=== PATIENT | female | born 1980 | race African-American/Black ===

== ENCOUNTER 2016-11-24 23:08 | Emergency (ER) | payer OTHER ==
[~2016-11-24] VITALS: Ht 167.6 cm; Wt 68.0 kg
[2016-11-24] MEDS ORDERED: Solu-MEDROL 125mg Inj IVP ONE (23:30)
[2016-11-24] MEDS: Albuterol ud Inhalation HHN SCH ×2 (23:43→23:51)
[2016-11-24] MEDS: Ipratropium 0.02% Inh Soln 2.5ml UD HHN SCH ×2 (23:43→23:51)
[2016-11-25] MEDS: Albuterol ud Inhalation HHN SCH
[2016-11-25] MEDS: Ipratropium 0.02% Inh Soln 2.5ml UD HHN SCH
[2016-11-25 01:00] VITALS: BP 103/55
[2016-11-25 01:02] LABS: APPEARANCE,URINE CLEAR; KETONES,URINE NEGATIVE (NEGATIVE); LEUKOCYTE ESTERASE ,URINE NEGATIVE (NEGATIVE); NITRITE,URINE NEGATIVE (NEGATIVE); PH,URINE 6 (4.5-8.0); PROTEIN,URINE 4+ (NEGATIVE); UROBILINOGEN,URINE 4 MG/DL (0.0-1.0)
[2016-11-25 01:08] LABS: BACTERIA,URINE FEW /HPF; HYALINE CASTS, URINE 0-2 /LPF; RBC,URINE 0-2 /HPF (0 - 2); SQUAMOUS EPITHELIAL CELL,UR FEW /LPF (NONE/OCC)
[2016-11-25 02:02] LABS: MEAN CORPUSCULAR HEMOGLOBIN 28.3 PG (27.0-31.0); MEAN CORPUSCULAR HGB CONC 29.9 G/DL (32.0-36.0); MEAN CORPUSCULAR VOLUME 95 FL (80-99); MEAN PLATELET VOLUME 5.5 FL (6.5-10.1); PLATELET COUNT 451 K/UL (150-450); RED BLOOD COUNT 2.67 M/UL (4.20-5.40); RED CELL DISTRIBUTION WIDTH 18.1 % (11.6-14.8); WHITE BLOOD COUNT 7.2 K/UL (4.8-10.8)
[2016-11-25 02:17] LABS: ALBUMIN/GLOBULIN RATIO 0.3 (1.0-2.7); CALCIUM 7.7 mg/dL (8.6-10.2); CREATININE 1.6 mg/dL (0.5-0.9); GLOMERULAR FILTRATION RATE 44.2 mL/min (>60); POTASSIUM 4.4 mEQ/L (3.4-4.9); TOTAL PROTEIN 7.1 g/dL (6.6-8.7)
[2016-11-25 02:21] LABS: TROPONIN I < 0.30 ng/mL (<=0.30)
[2016-11-25 02:30] LABS: CKMB 7.3 ng/mL (< 3.8)
[2016-11-25 03:00] VITALS: BP 102/88
[2016-11-25 05:13] VITALS: BP 102/88
[2016-11-25 05:23] VITALS: BP 102/88
--- NOTE | 2016-11-25 05:37 | Emergency Room Report ---
History of Present Illness General Chief Complaint: Dyspnea/Respdistress Source: Patient, EMS Present Illness HPI 36-year-old female presents to ED complaining of shortness of breath. Patient notes history of asthma and "enlarged heart". Patient states he has been coughing and wheezing for one day now. Per EMS O2 sat was in the 80s initially. She was started on nebulizer treatments with O2 saturation improved. Patient states she still feels short of breath and is wheezing. Notes cough. Productive. Denies fevers or chills. Denies chest pain. No other aggravating relieving factors. Eyes any other associated symptoms Allergies: Coded Allergies: No Known Allergies (Unverified , 11/24/16) Patient History Past Medical History: asthma Past Surgical History: none Pertinent Family History: none Social History: Denies: alcohol use, drug use, smoking Last Menstrual Period: NONE Now: No Immunizations: UTD Reviewed Nursing Documentation: PMH: Agreed, PSxH: Agreed Nursing Documentation-PMH Hx Asthma: Yes Review of Systems All Other Systems: negative except mentioned in HPI Physical Exam Vital Signs Date Time Temp Pulse Resp B/P Pulse Ox O2 Delivery O2 Flow Rate FiO2 11/24/16 23:08 98.8 139 22 104/58 100 Room Air 11/24/16 23:39 21 Sp02 EP Interpretation: reviewed, normal General Appearance: alert, GCS 15, non-toxic, moderate distress Head: normocephalic Eyes: bilateral eye PERRL, bilateral eye normal inspection ENT: normal ENT inspection Neck: normal inspection Respiratory: wheezing Cardiovascular #1: no edema, tachycardia Gastrointestinal: normal inspection Rectal: deferred Genitourinary: no CVA tenderness Musculoskeletal: normal inspection Neurologic: alert, oriented x3, responsive, motor strength/tone normal, sensory intact, speech normal Psychiatric: normal inspection Skin: normal inspection Lymphatic: normal inspection Medical Decision Making Diagnostic Impression: Primary Impression: Asthma exacerbation Additional Impressions: CHF (congestive heart failure) Qualified Codes: I50.9 - Heart failure, unspecified Anemia Qualified Codes: D64.9 - Anemia, unspecified ARF (acute renal failure) Qualified Codes: N17.9 - Acute kidney failure, unspecified ER Course Hospital Course 36-year-old female presents ED complaining of short of breath, wheezing, cough Differential diagnoses include: Pneumonia, asthma, COPD, CHF Clinical course Patient placed on stretcher. 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 After initial history and physical I ordered labs, EKG, chest x-ray, nebulizer treatment labs reviewed- no leukocytosis, hemoglobin/hematocrit 7.5/25.2, creatinine elevated, troponins negative, BNP greater than 5000, Chest x-ray- cardiomegaly Patient required multiple rounds some breathing treatments remains wheezing. Antibiotics given. Because of insurance patient will be transferred I. I feel this is a highly complex case requiring extensive working including EKG/Rhythm strip, Xray/CT/US, Blood/urine lab work, repeat exams while in ED, and administration of strong opiates/narcotics for pain control, admission to hospital or close patient follow up. Diagnosis - asthma exacerbation, CHF, anemia, ARF transferred in serious condition Labs Test 11/25/16 00:09 11/25/16 01:45 Urine Color Yellow Urine Appearance Clear Urine pH 6 (4.5-8.0) Urine Specific Mcgraw 1.015 (1.005-1.035) Urine Protein 4+ (NEGATIVE) Urine Glucose (UA) Negative (NEGATIVE) Urine Ketones Negative (NEGATIVE) Urine Occult Blood 2+ (NEGATIVE) Urine Nitrite Negative (NEGATIVE) Urine Bilirubin Negative (NEGATIVE) Urine Urobilinogen 4 MG/DL (0.0-1.0) Urine Leukocyte Esterase Negative (NEGATIVE) Urine RBC 0-2 /HPF (0 - 2) Urine WBC 5-10 /HPF (0 - 2) Urine Squamous Epithelial Cells Few /LPF (NONE/OCC) Urine Bacteria Few /HPF (NONE) Urine Hyaline Casts 0-2 /LPF (NONE) White Blood Count 7.2 K/UL (4.8-10.8) Red Blood Count 2.67 M/UL (4.20-5.40) Hemoglobin 7.5 G/DL (12.0-16.0) Hematocrit 25.2 % (37.0-47.0) Mean Corpuscular Volume 95 FL (80-99) Mean Corpuscular Hemoglobin 28.3 PG (27.0-31.0) Mean Corpuscular Hemoglobin Concent 29.9 G/DL (32.0-36.0) Red Cell Distribution Width 18.1 % (11.6-14.8) Platelet Count 451 K/UL (150-450) Mean Platelet Volume 5.5 FL (6.5-10.1) Neutrophils (%) (Auto) % (45.0-75.0) Lymphocytes (%) (Auto) % (20.0-45.0) Monocytes (%) (Auto) % (1.0-10.0) Eosinophils (%) (Auto) % (0.0-3.0) Basophils (%) (Auto) % (0.0-2.0) Sodium Level 138 mEQ/L (135-145) Potassium Level 4.4 mEQ/L (3.4-4.9) Chloride Level 100 mEQ/L (98-107) Carbon Dioxide Level 23 mEQ/L (20-30) Anion Gap 15 (5-15) Blood Urea Nitrogen 34 mg/dL (7-23) Creatinine 1.6 mg/dL (0.5-0.9) Estimat Glomerular Filtration Rate 44.2 mL/min (>60) Glucose Level 96 mg/dL (74-106) Calcium Level 7.7 mg/dL (8.6-10.2) Total Bilirubin 0.3 mg/dL (0.0-1.2) Aspartate Amino Transf (AST/SGOT) 106 U/L (5-40) Alanine Aminotransferase (ALT/SGPT) 74 U/L (3-33) Alkaline Phosphatase 199 U/L (35-104) Creatine Kinase MB 7.3 ng/mL (< 3.8) Troponin I < 0.30 ng/mL (<=0.30) Pro-B-Type Natriuretic Peptide 5203 pg/mL (0-125) Total Protein 7.1 g/dL (6.6-8.7) Albumin 2.0 g/dL (3.5-5.2) Globulin 5.1 g/dL Albumin/Globulin Ratio 0.3 (1.0-2.7) EKG Diagnostic Results Rate: tachycardiac Rhythm: NSR ST Segments: no acute changes ASA given to the pt in ED: No Rhythm Strip Diag. Results EP Interpretation: yes Rhythm: NSR, no PVC's, no ectopy Chest X-Ray Diagnostic Results EP Interpretation: Yes Findings: no consolidation, no effusion, no pneumothorax, no acute cardiopulmonary disease, other - cardiomegaly Number of Views: 1 Last Vital Signs Date Time Temp Pulse Resp B/P Pulse Ox O2 Delivery O2 Flow Rate FiO2 11/25/16 05:13 98.8 133 13 102/88 100 Room Air 11/25/16 00:02 21 Status: improved Disposition: XFER SHT-TRM HOSP Condition: Serious Referrals: [facility],REFERRING (PCP) JOE CURRY M.D. Nov 25, 2016 05:37
--- NOTE | 2016-11-25 13:35 | Diagnostic Imaging Report ---
Indication: SOB Technique: One view of the chest Comparison: none Findings: Heart is mildly enlarged. Lungs and pleural spaces are clear. Impression: Mild cardiomegaly No acute cardio pulmonary process. This agrees with the preliminary interpretation provided by the emergency room physician
== END 2016-11-25 05:23 | disposition short-term general hospital (02) ==
LOC: EDBD 23:08 → EMR 23:28
DX: J45.901 Unspecified asthma with (acute) exacerbation (principal); I50.9 Heart failure, unspecified; D64.9 Anemia, unspecified; N17.9 Acute kidney failure, unspecified
CPT/HCPCS: 36415; 71010; 80053; 81003; 82553; 83880; 84484; 85025; 93005; 94640; 94664; 96374; 96375; 99285; J1956; J2930